=== PATIENT | male | born 1960 | race Two or more races ===

== ENCOUNTER 2016-10-18 18:05 | Inpatient (IN) | payer OTHER, MEDICAID ==
[~2016-10-18] VITALS: Ht 177.8 cm; Wt 121.6 kg
[2016-10-18] VITALS (12 sets, daily range): BP systolic 151–176; BP diastolic 76–91
[~2016-10-18 18:05] MED LIST: AMLO10TA2 PO; ASPI81TA44 PO; CALC667T4 PO; CLOP75TA2 PO; EZET10TA PO; GABA-532 PO; ISOS30TA6 PO; LEVO25TA7 PO; METO50TA3 PO; NITR0.4T SL; OMEP20TA68 PO; PRED10TA PO; SEVE800T8 PO; VENL37.55 PO
[2016-10-18 18:30] LABS: BASOPHILS # (AUTO) 0.3 /CMM (0.0-0.2); BASOPHILS % (AUTO) 4.3 % (0.0-2.0); DIFF TOTAL % 100 %; EOSINOPHILS # (AUTO) 0.1 /CMM (0.0-0.7); EOSINOPHILS % (AUTO) 1.6 % (0.0-6.0); HEMATOCRIT 34 % (39-51); LYMPHOCYTES # (AUTO) 0.7 /CMM (0.8-4.8); MEAN CORPUSCULAR HEMOGLOBIN 32 PG (26.0-33.0); MEAN CORPUSCULAR HGB CONC 32 g/dl (31.0-36.0); MEAN CORPUSCULAR VOLUME 98 fL (80-96); MONOCYTES # (AUTO) 0.6 /CMM (0.1-1.30); NEUTROPHILS # (AUTO) 5.6 /CMM (1.8-8.9); NEUTROPHILS % (AUTO) 76.1 % (43.0-81.0); PLATELET COUNT (AUTO) 167 /CMM (150-450); RED BLOOD CELL COUNT(AUTO) 3.51 MIL/uL (4.5-6.0); WHITE BLOOD COUNT (AUTO) 7.3 K/uL (4.3-11.0)
[2016-10-18 18:40] LABS: CALCIUM, SERUM 8.8 mg/dL (8.5-10.1); POTASSIUM 4.1 mmol/L (3.5-5.1)
[2016-10-18 18:43] LABS: INR 1.1 (0.87-1.13); PROTHROMBIN TIME 11.6 SECS (9.5-12.7)
[2016-10-18 18:44] LABS: CREATININE 7.8 mg/dL (0.6-1.3)
[2016-10-18 18:48] LABS: TROPONIN I 0.158 ng/mL (0.00-0.056)
[2016-10-18 18:49] LABS: ALBUMIN 3.7 g/dL (3.4-5.0); BILIRUBIN,DIRECT 0.1 mg/dL (0.0-0.2); BILIRUBIN,TOTAL 0.5 mg/dL (0.2-1.0); INDIRECT BILIRUBIN 0.4 mg/dL (0.0-1.1)
[2016-10-18 18:50] LABS: TOTAL PROTEIN, SERUM 8.3 g/dL (6.4-8.2)
[2016-10-18 18:58] LABS: LACTIC ACID 1.6 mmol/L (0.4-2.0)
[2016-10-18] MEDS ORDERED: HYDROMORPHONE 1 MG/1 ML DISP.SYRIN ONE (19:00)
[2016-10-18] MEDS ORDERED: HYDROMORPHONE 1 MG/1 ML DISP.SYRIN IV ONE (19:00)
[2016-10-18] MEDS ORDERED: ACETAMINOPHEN 325 MG TABLET PO PRN (20:30)
[2016-10-18] MEDS ORDERED: MAG HYDROX/AL HYDROX/SIMETH 30 ML UDC PO PRN (20:30)
[2016-10-18] MEDS ORDERED: MAGNESIUM HYDROXIDE 30 ML UDC PO PRN (20:30)
[2016-10-18] MEDS ORDERED: ONDANSETRON HCL/PF 4 MG/2 ML VIAL IVP PRN (20:30)
[2016-10-18] MEDS ORDERED: HYDR-552 PO (20:59)
[2016-10-18] MEDS ORDERED: CYAN100T3 PO (20:59)
[2016-10-18] MEDS ORDERED: OMEG500C PO (20:59)
[2016-10-18] MEDS ORDERED: VITA1TAB20 PO (20:59)
[2016-10-18] MEDS ORDERED: HYDROMORPHONE 1 MG/1 ML DISP.SYRIN IV PRN (21:00)
[2016-10-19] VITALS (16 sets, daily range): BP systolic 12–163; BP diastolic 50–83
[2016-10-19] MEDS: HYDROMORPHONE 1 MG/1 ML DISP.SYRIN IV PRN ×3 (00:30→08:26)
[2016-10-19] MEDS ORDERED: ASPIRIN 81 MG TAB.CHEW PO ONE (01:00)
[2016-10-19] MEDS ORDERED: ASPIRIN 81 MG TAB.CHEW ONE (01:17)
[2016-10-19] MEDS ORDERED: ENOXAPARIN SODIUM 60 MG/0.6 ML DISP.SYRIN SQ ONE ×2 (01:18→01:30)
[2016-10-19] MEDS ORDERED: NITROGLYCERIN 0.4 MG/TAB BOTTLE SL PRN (01:30)
[2016-10-19] MEDS ORDERED: HYDROCODONE/APAP 5/325MG 1 EACH TABLET PO PRN (01:30)
[2016-10-19] MEDS ORDERED: HYDROCODONE/APAP 5/325MG 1 EACH TABLET ONE (03:48)
[2016-10-19] MEDS ORDERED: HYDROMORPHONE 1 MG/1 ML DISP.SYRIN ONE (04:41)
[2016-10-19 04:50] LABS: BASOPHILS % (AUTO) 0.5 % (0.0-2.0); DIFF TOTAL % 100 %; EOSINOPHILS # (AUTO) 0.1 /CMM (0.0-0.7); EOSINOPHILS % (AUTO) 2.3 % (0.0-6.0); HEMATOCRIT 31 % (39-51); HEMOGLOBIN 9.8 g/dL (13.5-17.5); LYMPHOCYTES # (AUTO) 1.1 /CMM (0.8-4.8); LYMPHOCYTES % (AUTO) 16.6 % (20.0-44.0); MEAN CORPUSCULAR HEMOGLOBIN 31 PG (26.0-33.0); MEAN CORPUSCULAR HGB CONC 32 g/dl (31.0-36.0); MEAN CORPUSCULAR VOLUME 98 fL (80-96); MONOCYTES # (AUTO) 0.7 /CMM (0.1-1.30); MONOCYTES % (AUTO) 10.7 % (2.0-12.0); NEUTROPHILS # (AUTO) 4.5 /CMM (1.8-8.9); NEUTROPHILS % (AUTO) 69.9 % (43.0-81.0); PLATELET COUNT (AUTO) 162 /CMM (150-450); RED BLOOD CELL COUNT(AUTO) 3.16 MIL/uL (4.5-6.0); WHITE BLOOD COUNT (AUTO) 6.4 K/uL (4.3-11.0)
[2016-10-19 04:59] LABS: CALCIUM, SERUM 8.5 mg/dL (8.5-10.1); PHOSPHORUS 4.7 mg/dL (2.5-4.9); POTASSIUM 4.6 mmol/L (3.5-5.1)
[2016-10-19] MEDS ORDERED: ENOXAPARIN SODIUM 100 MG/ML DISP.SYRIN SQ STA (07:38)
[2016-10-19] MEDS ORDERED: SEVELAMER CARBONATE 800 MG TABLET PO SCH (08:00)
[2016-10-19 08:50] LABS: ABG BASE EXCESS 2.6 mmol/L; ABG HCO3 27.7 mmol/L; ABG PH 7.407 (7.350-7.450); ABG PO2 69.4 mmHg (75.0-100.0); ABG TOTAL HEMOGLOBIN 10.7 G/dL (13.5-18.0); ALLEN TEST Pass; AaDO2 164.1 mmHg; O2Hb 90.3 % (94.0-97.0)
[2016-10-19] MEDS ORDERED: THIAMINE HCL 100 MG TABLET PO SCH (09:00)
[2016-10-19] MEDS ORDERED: predniSONE 10 MG TABLET PO SCH (09:00)
[2016-10-19] MEDS ORDERED: CLOPIDOGREL BISULFATE 75 MG TABLET PO SCH (09:00)
[2016-10-19] MEDS ORDERED: EZETIMIBE 10 MG TABLET PO SCH (09:00)
[2016-10-19] MEDS ORDERED: ISOSORBIDE MONONITRATE (30MG) 30 MG TAB.SR.24H PO SCH (09:00)
[2016-10-19] MEDS ORDERED: CYANOCOBALAMIN 100 MCG TABLET PO SCH (09:00)
[2016-10-19] MEDS ORDERED: ASPIRIN EC 81 MG TABLET.DR PO SCH (09:00)
[2016-10-19] MEDS ORDERED: AMLODIPINE BESYLATE 10 MG TABLET PO SCH (09:00)
[2016-10-19] MEDS ORDERED: PANTOPRAZOLE 40 MG VIAL IV SCH (09:00)
[2016-10-19] MEDS ORDERED: METOPROLOL TARTRATE 50 MG TABLET PO SCH (09:00)
[2016-10-19] MEDS ORDERED: LEVOTHYROXINE SODIUM 25 MCG TABLET PO SCH (09:00)
[2016-10-19] MEDS ORDERED: GABAPENTIN 100 MG CAPSULE PO SCH (22:00)
== END 2016-10-19 12:25 | disposition short-term general hospital (02) | DRG 280 ==
LOC: ER 18:07 → ICU 19:55
PROVIDERS: ADMIT Nurse Practitioner Acute Care; ATTEND Nurse Practitioner Acute Care
PROC: 5A1D00Z (ICD-10-PCS; principal; 2016-10-18)
PROC: 5A09357 Assistance with Respiratory Ventilation, Less than 24 Consecutive Hours, Continuous Positive Airway Pressure (ICD-10-PCS; 2016-10-18)
DX: I21.4 Non-ST elevation (NSTEMI) myocardial infarction (principal); J96.00 Acute respiratory failure, unspecified whether with hypoxia or hypercapnia; N18.6 End stage renal disease; I13.2 Hypertensive heart and chronic kidney disease with heart failure and with stage 5 chronic kidney disease, or end stage renal disease; J98.11 Atelectasis; J90 Pleural effusion, not elsewhere classified; I50.9 Heart failure, unspecified; D64.9 Anemia, unspecified; E03.9 Hypothyroidism, unspecified; E11.22 Type 2 diabetes mellitus with diabetic chronic kidney disease; E66.01 Morbid (severe) obesity due to excess calories; E78.5 Hyperlipidemia, unspecified; I25.2 Old myocardial infarction; I25.10 Atherosclerotic heart disease of native coronary artery without angina pectoris; Z86.73 Personal history of transient ischemic attack (TIA), and cerebral infarction without residual deficits; Z99.2 Dependence on renal dialysis; Z98.61 Coronary angioplasty status; Z68.38 Body mass index [BMI] 38.0-38.9, adult; G47.33 Obstructive sleep apnea (adult) (pediatric); E83.9 Disorder of mineral metabolism, unspecified
CPT/HCPCS: 36415; 36600; 71010-TC; 80048-TC; 80061-TC; 80076-TC; 83605-TC; 83735-TC; 84100-TC; 84484-TC; 85025-TC; 85730-TC; 87040-TC; 87081-TC; 93307-TC; A4606; C9113; J1170; J1650; Z7610

== ENCOUNTER 2016-12-06 21:36 | Emergency (ER) | payer OTHER, MEDICAID ==
[~2016-12-06] VITALS: Ht 177.8 cm; Wt 136.1 kg
[~2016-12-06 21:36] MED LIST changes: -CALC667T4 PO; +CYAN100T3 PO; +HYDR-552 PO; +OMEG500C PO; -OMEP20TA68 PO; -VENL37.55 PO; +VITA1TAB20 PO
--- NOTE | 2016-12-06 21:36 | NUR ---
PT BIB RA 88 WITH A C/O CP DURING DIALYSIS. PT HAD 45 MINS LEFT WHEN HE DEVELOPED CP
--- NOTE | 2016-12-06 21:52 | NUR ---
CALLED NURSING SUP. FOR TELE BED
[2016-12-06 22:01] LABS: BASOPHILS % (AUTO) 0.1 % (0.0-2.0); EOSINOPHILS # (AUTO) 0.1 /CMM (0.0-0.7); EOSINOPHILS % (AUTO) 1.5 % (0.0-6.0); HEMATOCRIT 29 % (39-51); HEMOGLOBIN 9.3 g/dL (13.5-17.5); LYMPHOCYTES # (AUTO) 1.1 /CMM (0.8-4.8); MEAN CORPUSCULAR HEMOGLOBIN 31 PG (26.0-33.0); MEAN CORPUSCULAR HGB CONC 32 g/dl (31.0-36.0); MEAN CORPUSCULAR VOLUME 97 fL (80-96); MONOCYTES # (AUTO) 0.5 /CMM (0.1-1.30); MONOCYTES % (AUTO) 7.9 % (2.0-12.0); NEUTROPHILS # (AUTO) 4.9 /CMM (1.8-8.9); NEUTROPHILS % (AUTO) 74.5 % (43.0-81.0); PLATELET COUNT (AUTO) 183 /CMM (150-450); RDW COEFFICIENT OF VARIATION 19.2 (11.5-15.0); RED BLOOD CELL COUNT(AUTO) 2.99 MIL/uL (4.5-6.0); WHITE BLOOD COUNT (AUTO) 6.6 K/uL (4.3-11.0)
[2016-12-06] MEDS ORDERED: NITROGLYCERIN 0.4 MG/TAB BOTTLE ONE (22:05)
[2016-12-06 22:09] VITALS: BP 155/71
[2016-12-06 22:16] LABS: CALCIUM, SERUM 8.8 mg/dL (8.5-10.1); CREATININE 3.6 mg/dL (0.6-1.3); POTASSIUM 4.2 mmol/L (3.5-5.1)
[2016-12-06 22:19] LABS: INR 1.05 (0.87-1.13); PROTHROMBIN TIME 11.4 SECS (9.5-12.7)
[2016-12-06 22:20] LABS: TROPONIN I 0.144 ng/mL (0.00-0.056)
[2016-12-06] MEDS ORDERED: NITROGLYCERIN 0.4 MG/TAB BOTTLE SL ONE (22:30)
--- NOTE | 2016-12-06 22:30 | NUR ---
CALLED [facility], PRESENTED PT, AWAITING CALL BACK FROM [facility]
--- NOTE | 2016-12-06 22:47 | NUR ---
ON PHONE WITH (VENICE)
[2016-12-06] MEDS ORDERED: HYDROMORPHONE 1 MG/1 ML DISP.SYRIN ONE (22:56)
[2016-12-06] MEDS ORDERED: HYDROMORPHONE 1 MG/1 ML DISP.SYRIN IV ONE (23:00)
--- NOTE | 2016-12-06 23:00 | NUR ---
PT REC'D MEDICATION ORDERED.
--- NOTE | 2016-12-06 23:23 | NUR ---
PT ASSIGNED TO [facility] [id number]
--- NOTE | 2016-12-06 23:49 | NUR ---
CALLED [facility] FOR F/U [facility] DR GREGORIO CALL BACK. PAGED.
--- NOTE | 2016-12-06 23:54 | NUR ---
[facility] CALLED - DR. TEJEDA, TRANSFER MD. PT IS GOING TO [facility] 8761. CALL REPORT TO [phone]. DR. CUBA DELACRUZ ACCEPTING
--- NOTE | 2016-12-06 23:59 | NUR ---
TRANSFER ETA 30 MINS.
[2016-12-07] MEDS ORDERED: HYDROMORPHONE 1 MG/1 ML DISP.SYRIN ONE (00:28)
[2016-12-07] MEDS ORDERED: HYDROMORPHONE 1 MG/1 ML DISP.SYRIN IV PRN (00:30)
--- NOTE | 2016-12-07 00:36 | NUR ---
CALLING REPORT TO [facility] 2731
--- NOTE | 2016-12-07 00:37 | NUR ---
CALLING REPORT TO HERO CAMACHO RN
--- NOTE | 2016-12-07 00:48 | NUR ---
REPORT GIVEN TO DR. KO - [facility] . REPORT GIVEN TO [facility]OCIATE.
--- NOTE | 2016-12-07 00:48 | NUR ---
PT TRANSPORTED OUT VIA AMBULANCE TO [facility] ROOM 8020
== END 2016-12-07 00:48 ==
LOC: ER 21:36 → UNDOADMIN 23:32 → TELE 23:32
DX: I21.4 Non-ST elevation (NSTEMI) myocardial infarction (principal); I10 Essential (primary) hypertension; E11.9 Type 2 diabetes mellitus without complications; Z88.0 Allergy status to penicillin; Z88.8 Allergy status to other drugs, medicaments and biological substances; Z88.6 Allergy status to analgesic agent; Z95.818 Presence of other cardiac implants and grafts; F43.12 Post-traumatic stress disorder, chronic
CPT/HCPCS: 36415; 71010; 80048; 84484; 85025; 85730; 87081; 93005; 96374; 96376; 99285; A4606; J1170 ×2; Z7610

== ENCOUNTER 2017-03-10 20:52 | Emergency (ER) | payer OTHER, MEDICAID ==
[~2017-03-10] VITALS: Ht 180.3 cm; Wt 113.4 kg
--- NOTE | 2017-03-10 21:00 | NUR ---
56 YO MALE BB RA. PT ASSISTED TO ER BED. PT GOWNED, PLACED ON POSTAL SERVICE MAIL PROCESSOR,. SKIN WARM AND DRY, RR EVEN AND UNLABORED. AWAITING ORDERS FROM PROVIDER, SINDY LAW TO MONITOR
--- NOTE | 2017-03-10 21:13 | NUR ---
EMT AT BED SIDE FOR EKG
[2017-03-10] MEDS ORDERED: HYDROMORPHONE 1 MG/1 ML DISP.SYRIN ONE (21:25)
[2017-03-10 21:28] LABS: EOSINOPHILS # (AUTO) 0.1 /CMM (0.0-0.7); EOSINOPHILS % (AUTO) 2.1 % (0.0-6.0); HEMATOCRIT 35 % (39-51); HEMOGLOBIN 11.2 g/dL (13.5-17.5); LYMPHOCYTES # (AUTO) 0.9 /CMM (0.8-4.8); LYMPHOCYTES % (AUTO) 14.3 % (20.0-44.0); MEAN CORPUSCULAR HEMOGLOBIN 30 PG (26.0-33.0); MEAN CORPUSCULAR HGB CONC 32 g/dl (31.0-36.0); MEAN CORPUSCULAR VOLUME 91 fL (80-96); MONOCYTES # (AUTO) 0.3 /CMM (0.1-1.30); MONOCYTES % (AUTO) 5.5 % (2.0-12.0); NEUTROPHILS # (AUTO) 4.8 /CMM (1.8-8.9); NEUTROPHILS % (AUTO) 78.1 % (43.0-81.0); PLATELET COUNT (AUTO) 167 /CMM (150-450); RDW COEFFICIENT OF VARIATION 19.3 (11.5-15.0); RED BLOOD CELL COUNT(AUTO) 3.81 MIL/uL (4.5-6.0); WHITE BLOOD COUNT (AUTO) 6.2 K/uL (4.3-11.0)
[2017-03-10] MEDS ORDERED: HYDROMORPHONE 1 MG/1 ML DISP.SYRIN IV ONE (21:30)
[2017-03-10 21:48] LABS: CALCIUM, SERUM 9.1 mg/dL (8.5-10.1); CREATININE 4.7 mg/dL (0.6-1.3); INR 1.05 (0.87-1.13); POTASSIUM 4.8 mmol/L (3.5-5.1); PROTHROMBIN TIME 11.3 SECS (9.5-12.7)
[2017-03-10 21:56] LABS: TROPONIN I 0.301 ng/mL (0.00-0.056)
[2017-03-10 22:01] LABS: ALBUMIN 3.4 g/dL (3.4-5.0); BILIRUBIN,DIRECT 0.4 mg/dL (0.0-0.2); TOTAL PROTEIN, SERUM 8.5 g/dL (6.4-8.2)
--- NOTE | 2017-03-10 22:13 | NUR ---
CALLED HERO WHITEHEAD
--- NOTE | 2017-03-10 22:48 | NUR ---
RECEIVED CALL FROM [place] PHYSICIAN, DR. MARVIN. CALL TRANSFERED TO DR. LOVE
--- NOTE | 2017-03-10 23:12 | NUR ---
[facility] CALLED. PATIENT WILL BE TRANSFERRED TO [facility] ER. . ACCEPTING DR WILL BE DR. MCDUFFIE. [facility] ETA 0000.
--- NOTE | 2017-03-10 23:20 | NUR ---
REPORT GIVEN TO DAVID LANGFORD FOR [facility]
[2017-03-10 23:56] VITALS: BP 130/72
--- NOTE | 2017-03-11 00:12 | NUR ---
REPOT GIVEN TO EMT FOR TRANSPORT
== END 2017-03-11 00:12 ==
LOC: ER 20:55
DX: R07.89 Other chest pain (principal); R74.0 Nonspecific elevation of levels of transaminase and lactic acid dehydrogenase [LDH]; I12.0 Hypertensive chronic kidney disease with stage 5 chronic kidney disease or end stage renal disease; E11.22 Type 2 diabetes mellitus with diabetic chronic kidney disease; N18.6 End stage renal disease; F43.10 Post-traumatic stress disorder, unspecified; I50.9 Heart failure, unspecified; Z99.2 Dependence on renal dialysis; Z88.8 Allergy status to other drugs, medicaments and biological substances; Z79.82 Long term (current) use of aspirin; Z88.0 Allergy status to penicillin; Z88.5 Allergy status to narcotic agent
CPT/HCPCS: 36415; 71010-TC; 80048-TC; 80076-TC; 83880; 84484-TC; 85025-TC; 85730-TC; A4606; J1170; Z7610

== ENCOUNTER 2017-08-04 18:49 | Emergency (ER) | payer OTHER, MEDICAID ==
[~2017-08-04] VITALS: Ht 175.3 cm; Wt 120.2 kg
--- NOTE | 2017-08-04 18:56 | NUR ---
BIBRA FROM HD DT CHEST PAIN, 8/10 THROBBING, 8/10 RADIATING TO LEFT SHOULDER X 2 HOURS DUTING HD, PATIENT DID NOT FINISH HD.NO APPARNT DISTRESS. RESPIRATION EVEN AND UNLABORED. AFEBRILE.VSS
--- NOTE | 2017-08-04 18:57 | NUR ---
IV ACCESSED TO [facility].
--- NOTE | 2017-08-04 19:06 | NUR ---
RECEIVED REPORT FROM [facility]IM[facility] FOR [facility].
--- NOTE | 2017-08-04 19:28 | NUR ---
LAB AT BEDSIDE FOR BLOOD DRAW.
[2017-08-04] MEDS ORDERED: ONDANSETRON HCL/PF 4 MG/2 ML VIAL IVP ONE (19:30)
[2017-08-04] MEDS ORDERED: ONDANSETRON HCL/PF 4 MG/2 ML VIAL ONE (19:34)
[2017-08-04 19:52] LABS: BASOPHILS # (AUTO) 0.1 /CMM (0.0-0.2); BASOPHILS % (AUTO) 1.3 % (0.0-2.0); EOSINOPHILS % (AUTO) 0.6 % (0.0-6.0); HEMATOCRIT 29 % (39-51); HEMOGLOBIN 9.8 g/dL (13.5-17.5); LYMPHOCYTES # (AUTO) 1.1 /CMM (0.8-4.8); LYMPHOCYTES % (AUTO) 14.2 % (20.0-44.0); MEAN CORPUSCULAR HEMOGLOBIN 33 PG (26.0-33.0); MEAN CORPUSCULAR HGB CONC 34 g/dl (31.0-36.0); MEAN CORPUSCULAR VOLUME 96 fL (80-96); MONOCYTES # (AUTO) 0.4 /CMM (0.1-1.30); MONOCYTES % (AUTO) 5.7 % (2.0-12.0); NEUTROPHILS # (AUTO) 5.9 /CMM (1.8-8.9); NEUTROPHILS % (AUTO) 78.2 % (43.0-81.0); PLATELET COUNT (AUTO) 120 /CMM (150-450); RED BLOOD CELL COUNT(AUTO) 3.02 MIL/uL (4.5-6.0); WHITE BLOOD COUNT (AUTO) 7.5 K/uL (4.3-11.0)
[2017-08-04 20:03] LABS: CALCIUM, SERUM 8.6 mg/dL (8.5-10.1); CREATININE 5.8 mg/dL (0.6-1.3); POTASSIUM 4.2 mmol/L (3.5-5.1)
[2017-08-04 20:06] LABS: INR 1.06 (0.87-1.13)
[2017-08-04 20:10] LABS: TROPONIN I 0.121 ng/mL (0.00-0.056)
[2017-08-04 20:11] LABS: ALBUMIN 3.4 g/dL (3.4-5.0); BILIRUBIN,DIRECT 0.1 mg/dL (0.0-0.2); BILIRUBIN,TOTAL 0.4 mg/dL (0.2-1.0); TOTAL PROTEIN, SERUM 7.4 g/dL (6.4-8.2)
--- NOTE | 2017-08-04 22:31 | NUR ---
CALLED [facility] SPOKE WITH FLORENCIA, EXPECTING A CALL BACK FROM A [facility] DOCTOR.
--- NOTE | 2017-08-04 22:37 | NUR ---
DR DANGELO FROM [place] CALLED, ON THE PHONE WITH DR WHALEY.
[2017-08-04] MEDS ORDERED: HYDROMORPHONE 1 MG/1 ML DISP.SYRIN ONE (22:39)
[2017-08-04] MEDS ORDERED: HYDROMORPHONE 1 MG/1 ML DISP.SYRIN IV ONE (23:00)
[2017-08-04] MEDS ORDERED: CLOPIDOGREL BISULFATE 75 MG TABLET PO ONE (23:00)
--- NOTE | 2017-08-04 23:33 | NUR ---
PT TRANSFER INFO: GOING TO [facility] ER ACCEPTED DR. VARGAS NUMBER FOR REPORT: AMBULANCE ETA: 0015
[2017-08-04] MEDS ORDERED: CLOPIDOGREL BISULFATE 75 MG TABLET ONE (23:38)
--- NOTE | 2017-08-05 00:17 | NUR ---
REPORT GIVEN TO HERO RUSH
[2017-08-05] MEDS ORDERED: NITROGLYCERIN 0.4 MG/TAB BOTTLE ONE (00:24)
--- NOTE | 2017-08-05 00:28 | NUR ---
NITRO SL GIVEN FOR CP 04/07. BS 162/81 HR 54
[2017-08-05] MEDS ORDERED: NITROGLYCERIN 0.4 MG/TAB BOTTLE SL PRN (00:30)
--- NOTE | 2017-08-05 00:33 | NUR ---
PT STATES NO CP AT THIS TIME AFTER 1ST SL NITRO. ADRIENNE 149/69 HR 50
[2017-08-05 00:37] VITALS: BP 149/69
--- NOTE | 2017-08-05 00:38 | NUR ---
REPORT GIVEN TO [facility] CHOCOLATE TEMPERER. PT AOX3 AWARE OF TRANSPORT. PT WITH ALL BELONGINGS. PT VSS. PT TO BE TRANSPORTED TO [facility] ER. PER [facility] PA TOOK OVER CARE.
== END 2017-08-05 00:41 | disposition short-term general hospital (02) ==
LOC: ER 18:51
DX: R07.89 Other chest pain (principal); I12.0 Hypertensive chronic kidney disease with stage 5 chronic kidney disease or end stage renal disease; N18.6 End stage renal disease; E11.22 Type 2 diabetes mellitus with diabetic chronic kidney disease; F43.10 Post-traumatic stress disorder, unspecified; Z79.82 Long term (current) use of aspirin; Z88.0 Allergy status to penicillin; Z99.2 Dependence on renal dialysis; Z88.8 Allergy status to other drugs, medicaments and biological substances; Z88.6 Allergy status to analgesic agent
CPT/HCPCS: 36415; 71010; 78582; 80048; 80076; 84484; 85025; 85730; 93005; 96374; 96375; 99285; A4606; A9540; A9567; J1170; J2405; Z7610

== ENCOUNTER 2018-01-16 21:32 | Emergency (ER) | payer OTHER, MEDICAID ==
[~2018-01-16] VITALS: Ht 172.7 cm; Wt 104.3 kg
[~2018-01-16 21:32] MED LIST changes: -AMLO10TA2 PO; +AMLO10TA6 PO; +CLOP75TA15 PO; -CLOP75TA2 PO; -EZET10TA PO; +EZET10TA14 PO; +METO50TA16 PO; -METO50TA3 PO
--- NOTE | 2018-01-16 21:39 | NUR ---
PT TO ER BED 12. BIBRA FROM HOME C/O CP & SOB X 30 MIN. HX BYPASS AND STENTS. PT PLACED IN GOWN AND ON CENTRIFUGAL SPINNER. VSS/RESP EVEN UNLABORED/NAD NOTED/SKIN WARM AND DRY/AFEBRILE/AOX4. AWAITING MD SYLVESTER.
--- NOTE | 2018-01-16 21:42 | NUR ---
EMT AT BEDSIDE FOR EKG.
--- NOTE | 2018-01-16 21:43 | NUR ---
LAB AT BEDSIDE TO DRAW.
[2018-01-16 21:58] LABS: BASOPHILS % (AUTO) 0.2 % (0.0-2.0); EOSINOPHILS % (AUTO) 2.6 % (0.0-6.0); HEMATOCRIT 32 % (39-51); HEMOGLOBIN 10.6 g/dL (13.5-17.5); LYMPHOCYTES % (AUTO) 16.8 % (20.0-44.0); MEAN CORPUSCULAR HGB CONC 33 g/dl (31.0-36.0); MEAN CORPUSCULAR VOLUME 93 fL (80-96); MONOCYTES # (AUTO) 0.7 /CMM (0.1-1.30); MONOCYTES % (AUTO) 11.6 % (2.0-12.0); NEUTROPHILS # (AUTO) 4.1 /CMM (1.8-8.9); NEUTROPHILS % (AUTO) 68.8 % (43.0-81.0); PLATELET COUNT (AUTO) 183 /CMM (150-450); RED BLOOD CELL COUNT(AUTO) 3.48 MIL/uL (4.5-6.0)
[2018-01-16 22:12] LABS: CALCIUM, SERUM 9.8 mg/dL (8.5-10.1); CREATININE 3.9 mg/dL (0.6-1.3); INR 0.99 (0.87-1.13); POTASSIUM 3.7 mmol/L (3.5-5.1)
[2018-01-16 22:17] LABS: ALBUMIN 3.4 g/dL (3.4-5.0); BILIRUBIN,TOTAL 0.4 mg/dL (0.2-1.0); TOTAL PROTEIN, SERUM 8.9 g/dL (6.4-8.2)
--- NOTE | 2018-01-16 22:33 | NUR ---
[facility], EXPECTING A CALL BACK FROM A ODD
[2018-01-16] MEDS ORDERED: ASPIRIN 325 MG TABLET PO ONE (23:00)
[2018-01-16] MEDS ORDERED: ASPIRIN 325 MG TABLET ONE (23:24)
--- NOTE | 2018-01-16 23:32 | NUR ---
PT RESTING QUIETLY, AROUSES EASILY YO VOICE. VSS.
--- NOTE | 2018-01-17 00:05 | NUR ---
pt accepted to [facility] by Dr Best. # for report [phone]
--- NOTE | 2018-01-17 00:36 | NUR ---
REPORT GIVEN TO ENEDINA ELECTRICAL ENGINEERING MANAGER NURSE AT [place] FOR [facility].
--- NOTE | 2018-01-17 01:07 | NUR ---
REPORT GIVEN TO MARY LOU WITH [facility] FOR TRANSPORT.
[2018-01-17 01:16] VITALS: BP 142/70
[2018-01-18] MEDS ORDERED: HYDROMORPHONE INJ 2 MG/ML DISP.SYRIN ONE (01:08)
--- NOTE | 2018-01-18 01:43 | NUR ---
accidently pulled hydromorphone under this patient instead of patient Adwoa Garces 07/14/2003. charge nurse kristen notifed, wasted medication with charge nurse peterson via [email or web address]
== END 2018-01-17 01:19 | disposition short-term general hospital (02) ==
LOC: ER 21:38
DX: I21.4 Non-ST elevation (NSTEMI) myocardial infarction (principal); E11.9 Type 2 diabetes mellitus without complications; F43.10 Post-traumatic stress disorder, unspecified; I10 Essential (primary) hypertension; I49.3 Ventricular premature depolarization; Z79.82 Long term (current) use of aspirin; Z88.0 Allergy status to penicillin; Z88.5 Allergy status to narcotic agent; Z95.5 Presence of coronary angioplasty implant and graft; Z99.2 Dependence on renal dialysis; Z88.8 Allergy status to other drugs, medicaments and biological substances
CPT/HCPCS: 36415; 71045-TC; 80053-TC; 84484-TC; 85025-TC; 85730-TC; A4606; J1170; Z7610

== ENCOUNTER 2018-03-18 19:33 | Emergency (ER) | payer OTHER, MEDICAID ==
[~2018-03-18] VITALS: Ht 175.3 cm; Wt 118.4 kg
--- NOTE | 2018-03-18 19:42 | NUR ---
PT BBRA FROM DIALYSIS CENTER C/C "CP 8/10 THROBBING IN NATURE AND RADIATING TO THE BACK X2 DAYS; WORSE TODAY AFTER RECEIVING 2/3 DIALYSIS", PT STATES PAIN BECAME WORSE [id number] TODAY. PT STATES HE IS FEELING "A BIT SHORT OF BREATH", PT ON NC 3L/M INTERNAL AUDITOR. PER EMS PT RECEIVED NTG 0.4 MG SL X2 AND ASA 162MG PO GIVEN INTERNAL AUDITOR". +N/-V/D. RESP EVEN AND UNLABORED. VSS. SKIN WNL. NO S/S OF ACUTE DISTRESS NOTED. PT PLACED ON RN MILITARY AND POX. PT SAFETY AND COMFORT MEASURES IN PLACE. AWAITING MD FOR EVAL
[2018-03-18 20:09] LABS: BASOPHILS # (AUTO) 0.1 /CMM (0.0-0.2); BASOPHILS % (AUTO) 0.9 % (0.0-2.0); EOSINOPHILS % (AUTO) 0.5 % (0.0-6.0); HEMATOCRIT 32 % (39-51); HEMOGLOBIN 10.9 g/dL (13.5-17.5); LYMPHOCYTES # (AUTO) 0.6 /CMM (0.8-4.8); LYMPHOCYTES % (AUTO) 8.8 % (20.0-44.0); MEAN CORPUSCULAR HGB CONC 34 g/dl (31.0-36.0); MEAN CORPUSCULAR VOLUME 92 fL (80-96); MONOCYTES # (AUTO) 0.3 /CMM (0.1-1.30); MONOCYTES % (AUTO) 3.6 % (2.0-12.0); NEUTROPHILS % (AUTO) 86.2 % (43.0-81.0); PLATELET COUNT (AUTO) 136 /CMM (150-450); RDW COEFFICIENT OF VARIATION 17.4 (11.5-15.0)
[2018-03-18 20:14] LABS: CALCIUM, SERUM 8.9 mg/dL (8.5-10.1); CREATININE 6.1 mg/dL (0.6-1.3); POTASSIUM 4.3 mmol/L (3.5-5.1)
[2018-03-18 20:22] LABS: TROPONIN I 0.114 ng/mL (0.00-0.056)
[2018-03-18] MEDS ORDERED: HYDROMORPHONE INJ 2 MG/ML DISP.SYRIN ONE ×2 (20:45→21:26)
--- NOTE | 2018-03-18 20:53 | NUR ---
CALLED HERO MAGAÑA MD TO CALL
[2018-03-18] MEDS ORDERED: HYDROMORPHONE 1 MG/1 ML DISP.SYRIN IV ONE ×2 (21:00→21:30)
--- NOTE | 2018-03-18 21:05 | NUR ---
Patient is resting comfortably in bed with eyes closed. Easily aroused. VSS
--- NOTE | 2018-03-18 21:25 | NUR ---
RECEIVED CALL FROM [facility] AND WAS TOLD PT IS BEING TRANSFERRED TO [facility] ED. NUMBER FOR REPORT IS [phone] DR BOYCE IS THE ACCEPTING MD. [facility] WILL ARRIVE AT 3560
[2018-03-18] MEDS ORDERED: oxyCODONE/APAP (5/325 MG) 1 UDTAB TABLET ONE (21:26)
[2018-03-18] MEDS ORDERED: oxyCODONE/APAP (5/325 MG) 1 UDTAB TABLET PO ONE (21:30)
[2018-03-18 22:15] VITALS: BP 144/79
--- NOTE | 2018-03-18 22:20 | NUR ---
REPORT GIVEN TO [place] PRIMITIVO CARSON FOR [facility].
--- NOTE | 2018-03-18 22:28 | NUR ---
[facility]S CREW BEDSIDE TO TRANSFER PT TO [facility]. REPORT GIVEN TO EMS CREW FOR [facility]. VSS UPON DISCHARGE
--- NOTE | 2018-03-18 22:29 | NUR ---
Patient Tranfers to outside Facility Physician:CARLI Location:[facility]
== END 2018-03-18 22:34 | disposition short-term general hospital (02) ==
LOC: ER 19:39
DX: R07.89 Other chest pain (principal); I12.0 Hypertensive chronic kidney disease with stage 5 chronic kidney disease or end stage renal disease; E11.22 Type 2 diabetes mellitus with diabetic chronic kidney disease; N18.6 End stage renal disease; I25.2 Old myocardial infarction; F43.10 Post-traumatic stress disorder, unspecified; Z95.818 Presence of other cardiac implants and grafts; Z95.1 Presence of aortocoronary bypass graft; G47.30 Sleep apnea, unspecified; Z88.0 Allergy status to penicillin; Z88.6 Allergy status to analgesic agent; Z88.8 Allergy status to other drugs, medicaments and biological substances; Z79.82 Long term (current) use of aspirin
CPT/HCPCS: 36415; 71045; 80048; 84484; 85025; 93005; 96374; 96376; 99285; A4606; J1170 ×2; Z7610